=== PATIENT | male | born 1995 | race African-American/Black ===

== ENCOUNTER 2022-05-20 00:34 | Emergency (ER) | payer SELFPAY ==
[2022-05-20 00:50] VITALS: BP 120/80; PULSE 58; RESP 18; TEMP 97.7; BMI 32.3
[2022-05-20] MEDS ORDERED: LACTATED RINGERS SOLUTION 1000 ML INFUS.BAG IV ONE (01:28)
[2022-05-20] MEDS ORDERED: ACETAMINOPHEN 1000 MG/100 ML BAG IVPB ONE (01:28)
[2022-05-20] MEDS ORDERED: FAMOTIDINE 20 MG/50 ML IVPB 20 MG/50 ML MG IVPB ONE ×2 (01:28→01:33)
[2022-05-20] MEDS ORDERED: ACETAMINOPHEN INJECTION 100 ML IVPB ONE (01:34)
[2022-05-20 02:20] LABS: EOS % 2.6 % (0-4.5); HEMATOCRIT 46.9 % (35.4-49); HEMOGLOBIN 15.4 GM/dL (11.7-16.9); LYMPH % 44.2 % (8-40); MCH 25.9 pg (25.7-33.7); MCHC 32.9 g/dl (32.0-35.9); MEAN CELL VOLUME 78.8 fl (80-96); MEAN PLT VOLUME 7.8 fl (7.5-11.1); MONO % 13.1 % (3.8-10.2); NEUT % 39.1 % (42.8-82.8); PLATELET COUNT 254 10^3/uL (134-434); RBC 5.95 M/mm3 (4.00-5.60); RDW 13.9 % (11.9-15.9); WHITE BLOOD COUNT 4.6 K/mm3 (4.0-10.0)
[2022-05-20 02:42] LABS: CALCIUM 9.6 mg/dL (8.5-10.1)
[2022-05-20 02:43] LABS: BLOOD UREA NITROGEN 13.8 mg/dL (7-18)
[2022-05-20 02:46] LABS: CREATININE 1.1 mg/dL (0.55-1.3)
[2022-05-20 02:47] LABS: TOT PROT 7.3 g/dl (6.4-8.2)
[2022-05-20 02:49] LABS: BILIRUBIN,TOTAL 0.4 mg/dL (0.2-1)
[2022-05-20 04:17] LABS: PH,URINE 5.5 (5.0-8.0); URINE APPEARANCE CLEAR; URINE BILIRUBIN NEGATIVE (NEGATIVE); URINE COLOR YELLOW; URINE GLUCOSE (UA) NEGATIVE (NEGATIVE); URINE KETONE NEGATIVE (NEGATIVE); URINE LEUK ESTERASE NEGATIVE (NEGATIVE); URINE NITRITE NEGATIVE (NEGATIVE); URINE PROTEIN NEGATIVE (NEGATIVE); URINE UROBILINOGEN 0.2 mg/dL (0.2-1.0)
== END 2022-05-20 04:39 | disposition home or self-care (01) ==
LOC: JER 00:34
PROC: 3E033GC Introduction of Other Therapeutic Substance into Peripheral Vein, Percutaneous Approach (ICD-10-PCS; principal; 2022-05-20)
PROC: 3E033NZ Introduction of Analgesics, Hypnotics, Sedatives into Peripheral Vein, Percutaneous Approach (ICD-10-PCS; 2022-05-20)
DX: N50.3 Cyst of epididymis (principal); R10.32 Left lower quadrant pain; R10.12 Left upper quadrant pain
CPT/HCPCS: 36415; 76870-TC; 80053; 81003; 83690; 85025; 87086; 99284-25